=== PATIENT | female | born 1980 | race Caucasian/White ===

== ENCOUNTER 2017-02-06 14:25 | Emergency (ER) | payer OTHER ==
[2017-02-06 14:32] VITALS: BP 111/67; PULSE 79; TEMP 98.7; BMI 26.5
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
[2017-02-06 15:18] LABS: URINE APPEARANCE CLEAR; URINE BILIRUBIN NEGATIVE (NEGATIVE); URINE BLOOD NEGATIVE (NEGATIVE); URINE COLOR YELLOW; URINE GLUCOSE (UA) NEGATIVE (NEGATIVE); URINE KETONE NEGATIVE (NEGATIVE); URINE LEUK ESTERASE NEGATIVE (NEGATIVE); URINE NITRITE NEGATIVE (NEGATIVE); URINE PROTEIN NEGATIVE (NEGATIVE); URINE UROBILINOGEN NEGATIVE mg/dL (0.2-1.0)
[2017-02-06] MEDS ORDERED: KETOROLAC TROMETHAMINE 60 MG/2 ML VIAL IM ONE (15:42)
[2017-02-06] MEDS ORDERED: KETOROLAC TROMETHAMINE 60 MG/2 ML VIAL ONE (15:46)
[2017-02-06] MEDS ORDERED: diazePAM 5 MG TABLET PO ONE (16:29)
[2017-02-06] MEDS ORDERED: diazePAM 5 MG TABLET ONE (16:39)
[2017-02-06 20:34] LABS: URINE LEUK ESTERASE Negative (NEGATIVE)
== END 2017-02-06 16:46 | disposition home or self-care (01) ==
LOC: JERFT 14:25
PROC: 3E0233Z Introduction of Anti-inflammatory into Muscle, Percutaneous Approach (ICD-10-PCS; principal; 2017-02-06)
DX: M79.1 Myalgia (principal); V43.52XA Car driver injured in collision with other type car in traffic accident, initial encounter; Y93.89 Activity, other specified; Y92.410 Unspecified street and highway as the place of occurrence of the external cause; F41.8 Other specified anxiety disorders
CPT/HCPCS: 71111-TC; 72070-TC; 72100-TC; 81003; 84703; 99281-25

== ENCOUNTER 2018-01-23 07:42 | Emergency (ER) | payer SELFPAY ==
[2018-01-23 07:56] VITALS: BP 128/62; PULSE 123; BMI 26.5
[2018-01-23] MEDS ORDERED: ACETAMINOPHEN 325 MG TABLET (FP) PO ONE (08:33)
[2018-01-23] MEDS ORDERED: ACETAMINOPHEN 325 MG TABLET (FP) ONE (08:35)
--- NOTE | 2018-01-23 08:36 | PDOC ---
History of Present Illness - General Chief Complaint: Cold Symptoms Stated Complaint: Cold Symptoms Time Seen by Provider: 01/23/18 08:27 History Source: Patient Exam Limitations: Clinical Condition - History of Present Illness Initial Comments: 01/23/18 08:34 Patient with no significant past medication present with complaint of nasal congestion, body aches, fever, sore throat and chills since yesterday. Patient also reported intermittent nonproductive cough. Patient denies nausea, vomiting or abdominal pain. Patient denies any other symptoms Timing/Duration: 24 hours Past History - Past Medical History Allergies/Adverse Reactions: Allergies Allergy/AdvReac Type Severity Reaction Status Date / Time No Known Allergies Allergy Verified 01/23/18 07:51 Home Medications: Ambulatory Orders Ipratropium [place] 2 spray NS BID PRN #1 spray 01/23/18 Methylprednisolone [Medrol Dose Azael] 4 mg PO ASDIR #21 tablet 01/23/18 Oseltamivir Phosphate [Tamiflu] 75 mg PO BID 5 Days #10 capsule 01/23/18 Asthma: No Cancer: No Cardiac Disorders: No COPD: No Diabetes: No HTN: No Psychiatric Problems: Yes (ANXIETY, DEPRESSION, BI-POLAR AND PANIC ATTACKS.) Seizures: No Thyroid Disease: No - Reproductive History (#): 3 Para: 2 - Immunization History Immunization Up to Date: Yes - Suicide/Smoking/Psychosocial Hx Smoking Status: Yes Smoking History: Former smoker Have you smoked in the past 12 months: No Number of Cigarettes Smoked Daily: 4 If you are a former smoker, when did you quit?: t-21 Information on smoking cessation initiated: No 'Breaking Loose' booklet given: 10/29/15 Hx Alcohol Use: No Drug/Substance Use Hx: No Substance Use Type: None Hx Substance Use Treatment: No Review of Systems - Review of Systems Able to Perform ROS?: Yes Is the patient limited Yi proficient: No Constitutional: Yes: Chills, Fever, Malaise HEENTM: Yes: Symptoms Reported, See HPI, Nose Congestion, Throat Pain. No: Eye Pain, Blurred Vision, Tearing, Recent change in vision, Double Vision, Cataracts , Ear Pain, Ocular Prothesis, Ear Discharge, Nose Pain, Tinnitus, Nose Bleeding , Hearing Loss, Throat Swelling, Mouth Pain, Dental Problems, Difficulty Swallowing, Mouth Swelling, Other Respiratory: Yes: Symptoms reported, See HPI, Cough. No: Orthopnea, Shortness of Breath, SOB with Exertion, SOB at Rest, Stridor, Wheezing, Productive cough, Hemoptysis, Other Cardiac (ROS): No: Symptoms Reported, See HPI, Chest Pain, Edema, Irregular Heart Rate, Lightheadedness, Palpitations, Syncope, Chest Tightness, Other ABD/GI: No: Symptoms Reported, See HPI, Abdominal Distended, Abd. Pain w/ defecation, Blood Streaked Bowels, Constipated, Diarrhea, Difficulty Swallowing , Nausea, Poor Appetite, Poor Fluid Intake, Rectal Bleeding, Vomiting, Indigestion, Abdominal cramping, Tarry Stools, Other All Other Systems: Reviewed and Negative *Physical Exam - Vital Signs Last Vital Signs Temp Pulse Resp BP Pulse Ox 101.2 F H 123 H 20 128/62 98 01/23/18 07:51 01/23/18 07:51 01/23/18 07:51 01/23/18 07:51 01/23/18 07:51 - Physical Exam Comments: 01/23/18 08:35 GENERAL: Well developed, well nourished. Awake and alert. No acute distress. HEENT: Normocephalic, atraumatic. PERRLA, EOMI. No conjunctival pallor. Sclera are non-icteric. Moist mucous membranes. Oropharynx is clear. NECK: Supple. Full ROM. CARDIOVASCULAR: Regular rate and rhythm. No murmurs, rubs, or gallops. Distal pulses are 2+ and symmetric. PULMONARY: No evidence of respiratory distress. Lungs clear to auscultation bilaterally. No wheezing, rales or rhonchi. ABDOMINAL: Soft. Non-tender. Non-distended. No rebound or guarding. No organomegaly. Normoactive bowel sounds. MUSCULOSKELETAL Normal range of motion at all joints. EXTREMITIES: No cyanosis. No clubbing. No edema. No calf tenderness. SKIN: Warm and dry. Normal capillary refill. No rashes. No jaundice. NEUROLOGICAL: Alert, awake, appropriate. Gait is normal without ataxia. PSYCHIATRIC: Cooperative. Good eye contact. Appropriate mood General Appearance: Yes: Nourished, Appropriately Dressed. No: Apparent Distress Moderate Sedation - Procedure Monitoring Vital Signs: Procedure Monitoring Vital Signs Temperature 101.2 F H 01/23/18 07:51 Pulse Rate 123 H 12/05/18 07:51 Respiratory Rate 20 01/23/18 07:51 Blood Pressure 128/62 01/23/18 07:51 O2 Sat by Pulse Oximetry (%) 98 01/23/18 07:51 Medical Decision Making - Medical Decision Making 01/23/18 08:35 Patient with no significant past medication present with complaint of 24-hour history of nasal congestion, runny nose, body aches, sore throat and fever. Clinical exam unremarkable except patient with fever of 101 Fahrenheit. Tylenol 975 mg by mouth given for fever. Rapid strep and rapid flu tests ordered. Treat based on lab results 01/23/18 09:23 rapid strep and flu neg. symptoms likely viral syndrome given body aches. Patient will be discharge home on Tamiflu and medrol with nasal spray for symptoms with advised to increase fluid intake and take tylenol as needed for fever *DC/Admit/Observation/Transfer Diagnosis at time of Disposition: Viral syndrome Pharyngitis Qualifiers: Pharyngitis/tonsillitis etiology: unspecified etiology Qualified Code(s): J02.9 - Acute pharyngitis, unspecified Fever Qualifiers: Fever type: unspecified Qualified Code(s): R50.9 - Fever, unspecified - Discharge Dispostion Disposition: HOME Condition at time of disposition: Stable Decision to Admit order: No - Prescriptions Prescriptions: Ipratropium [place] 2 spray NS BID PRN #1 spray PRN Reason: nasal congestion Methylprednisolone [Medrol Dose Azael] 4 mg PO ASDIR #21 tablet Oseltamivir Phosphate [Tamiflu] 75 mg PO BID 5 Days #10 capsule - Referrals Referrals: Gwen Clarke MD [Primary Care Provider] - - Patient Instructions Printed Discharge Instructions: DI for Viral Upper Respiratory Infection -- Adult Additional Instructions: take medication as prescribed. take tylenol as needed for fever. increase fluid intake. follow-up with primary care as needed - Post Discharge Activity
[2018-01-23 09:33] VITALS: TEMP 99.5
== END 2018-01-23 09:37 | disposition home or self-care (01) ==
LOC: JERFT 07:42
DX: J02.9 Acute pharyngitis, unspecified (principal); B97.89 Other viral agents as the cause of diseases classified elsewhere
CPT/HCPCS: 87070; 87077; 87804; 87880; 99281-25

== ENCOUNTER 2018-07-15 18:44 | Emergency (ER) | payer OTHER | END 2018-07-15 20:00 | disposition home or self-care (01) | LOC: JER 18:44 ==